=== PATIENT | male | born 1985 | race Native Hawaiian/Other Pacific Islander ===

== ENCOUNTER 2019-02-09 06:27 | Emergency (ER) | payer OTHER ==
[~2019-02-09] VITALS: Ht 167.6 cm; Wt 77.1 kg
[2019-02-09 07:10] VITALS: BP 120/80; TEMP 97.7
== END 2019-02-09 07:10 | disposition home or self-care (01) ==
LOC: ED 06:27
DX: M10.9 Gout, unspecified (principal)
CPT/HCPCS: 99281; 99282